=== PATIENT | female | born 1975 | race Caucasian/White ===

== ENCOUNTER 2018-05-15 17:26 | Emergency (ER) | payer BC ==
--- NOTE | 2018-05-15 18:55 | ER Document Report ---
ED Medical Screen (RME) - General Chief Complaint: Near Syncope Stated Complaint: POSSIBLE SYNCOPE Time Seen by Provider: 05/15/18 18:46 Notes: 42-year-old female to the emergency department chief complaint of dizziness, blurred vision, and unsteady gait. Patient was at work today and felt like she was about to pass out. Began seeing spots. Says that her eyes feel like they are moving. No nausea. No chest pain. I have greeted and performed a rapid initial assessment of this patient. A comprehensive ED assessment and evaluation of the patient, analysis of test results and completion of the medical decision making process will be conducted by additional ED providers. TRAVEL OUTSIDE OF THE [place] IN LAST 30 DAYS: No - Related Data Allergies/Adverse Reactions: prochlorperazine [From Compazine] Allergy (Verified 12/13/15 08:58) Past Medical History GI Medical History: Reports: Hx Ulcer Past Surgical History: Reports: Hx Appendectomy, Hx Hysterectomy Physical Exam - Vital signs Vitals: Temp Pulse Resp BP Pulse Ox 98.7 F 90 18 137/92 H 98 05/15/18 17:32 05/15/18 17:32 05/15/18 17:32 05/15/18 17:32 05/15/18 17:32 - Respiratory Respiratory status: No respiratory distress Chest status: Nontender Breath sounds: Normal Chest palpation: Normal - Cardiovascular Rhythm: Regular Heart sounds: Normal auscultation Murmur: No - Neurological Neuro grossly intact: Yes Cognition: Normal Orientation: AAOx4 Kleber Coma Scale Eye Opening: Spontaneous Luckey Coma Scale Verbal: Oriented Luckey Coma Scale Motor: Obeys Commands Luckey Coma Scale Total: 15 Speech: Normal Motor strength normal: LUE, RUE, LLE, RLE Sensory: Normal Course - Vital Signs Vital signs: Temp Pulse Resp BP Pulse Ox 98.7 F 90 18 137/92 H 98 05/15/18 17:32 05/15/18 17:32 05/15/18 17:32 05/15/18 17:32 05/15/18 17:32
--- NOTE | 2018-05-15 19:25 | RADIOLOGY REPORT (SQ) ---
EXAM DESCRIPTION: CHEST 2 VIEWS COMPLETED DATE/TIME: 05/15/2018 7:06 pm REASON FOR STUDY: near syncope COMPARISON: None. EXAM PARAMETERS: NUMBER OF VIEWS: two views TECHNIQUE: Digital Frontal and Lateral radiographic views of the chest acquired. RADIATION DOSE: NA LIMITATIONS: none FINDINGS: LUNGS AND PLEURA: No opacities, masses or pneumothorax. No pleural effusion. MEDIASTINUM AND HILAR STRUCTURES: No masses or contour abnormalities. HEART AND VASCULAR STRUCTURES: Heart normal size. No evidence for failure. BONES: No acute findings. HARDWARE: None in the chest. OTHER: No other significant finding. IMPRESSION: NO ACUTE RADIOGRAPHIC FINDING IN THE CHEST. TECHNICAL DOCUMENTATION: JOB ID: [id number] [employer]- All Rights Reserved Reading location - IP/workstation name: [email or web address]
--- NOTE | 2018-05-15 19:29 | RADIOLOGY REPORT (SQ) ---
EXAM DESCRIPTION: CT HEAD WITHOUT COMPLETED DATE/TIME: 05/15/2018 7:09 pm REASON FOR STUDY: Dizziness, blurred vision, unsteady gait COMPARISON: None. TECHNIQUE: Axial images acquired through the brain without intravenous contrast. Images reviewed wi th bone, brain and subdural windows. Additional sagittal and coronal reconstructions were generated. Images stored on PACS. All CT scanners at this facility use dose modulation, iterative reconstruction, and/or weight based d osing when appropriate to reduce radiation dose to as low as reasonably achievable (ALARA). [facility]: Dose Right [facility]: CareDose [facility]: Dose Right [facility]: Teradose 4D [facility]: [employer] RADIATION DOSE: CT Rad equipment meets quality standard of care and radiation dose reduction techniq ues were employed. CTDIvol: 53.2 mGy. DLP: 991 mGy-cm. mGy. LIMITATIONS: Very mild motion artifact FINDINGS: VENTRICLES: Normal size and contour. CEREBRUM: No masses. No hemorrhage. No midline shift. No evidence for acute infarction. Normal gra y/white matter differentiation. No areas of low density in the white matter. CEREBELLUM: No masses. No hemorrhage. No alteration of density. No evidence for acute infarction. EXTRAAXIAL SPACES: No fluid collections. No masses. ORBITS AND GLOBE: No intra- or extraconal masses. Normal contour of globe without masses. CALVARIUM: No fracture. PARANASAL SINUSES: No fluid or mucosal thickening. SOFT TISSUES: No mass or hematoma. OTHER: No other significant finding. IMPRESSION: NORMAL BRAIN CT WITHOUT CONTRAST. EVIDENCE OF ACUTE STROKE: NO. COMMENT: Quality ID # [id number]: Final reports with documentation of one or more dose reduction techniques (e.g., Automated exposure control, adjustment of the mA and/or kV according to patient size, use of iterative reconstruction technique) TECHNICAL DOCUMENTATION: JOB ID: [id number] [employer]- All Rights Reserved Reading location - IP/workstation name: [email or web address]
[2018-05-15 19:38] LABS: APPEARANCE,URINE CLEAR; BILIRUBIN,URINE NEGATIVE (NEGATIVE); COLOR,URINE YELLOW; GLUCOSE, URINE NEGATIVE (NEGATIVE); KETONES,URINE NEGATIVE (NEGATIVE); LEUKOCYTE ESTERASE,URINE NEGATIVE (NEGATIVE); NITRITE,URINE NEGATIVE (NEGATIVE); PROTEIN,URINE NEGATIVE (NEGATIVE); URINE SPECIFIC GRAVITY 1.009; UROBILINOGEN,URINE NEGATIVE mg/dL (<2.0)
[2018-05-15 19:39] LABS: ABSOLUTE EOSINOPHILS # (AUTO) 0.1 10^3/uL (0.0-0.6); ABSOLUTE LYMPHOCYTES (AUTO) 3.1 10^3/uL (0.5-4.7); ABSOLUTE MONOCYTES (AUTO) 0.7 10^3/uL (0.1-1.4); ABSOLUTE NEUT (AUTO) 9.4 10^3/uL (1.7-8.2); BASOPHILS % (AUTO) 0.2 % (0-2); EOSINOPHILS % (AUTO) 0.5 % (0-6); HEMATOCRIT 41.6 % (36.0-47.0); HEMOGLOBIN 14.5 g/dL (12.0-15.5); LYMPHOCYTES % (AUTO) 23.6 % (13-45); MEAN CORPUSCULAR HEMOGLOBIN 31.7 pg (27.0-33.4); MEAN CORPUSCULAR HGB CONC 34.8 g/dL (32.0-36.0); MEAN CORPUSCULAR VOLUME 91 fl (80-97); MONOCYTES % (AUTO) 5.4 % (3-13); PLATELET COUNT 354 10^3/uL (150-450); RED BLOOD COUNT 4.57 10^6/uL (3.72-5.28); RED CELL DISTRIBUTION WIDTH 12.7 % (11.5-14.0); SEGMENTED NEUTROPHILS % (AUTO) 70.3 % (42-78); TOTAL CELLS COUNTED % (AUTO) 100 %; WHITE BLOOD COUNT 13.3 10^3/uL (4.0-10.5)
[2018-05-15 19:59] LABS: ALANINE AMINOTRANSFERASE 28 U/L (9-52); ALBUMIN 4.7 g/dL (3.5-5.0); ALKALINE PHOSPHATASE 65 U/L (38-126); ANION GAP 10 (5-19); ASPARTATE AMINO TRANSFERASE 18 U/L (14-36); BILIRUBIN,DIRECT 0.1 mg/dL (0.0-0.4); BILIRUBIN,TOTAL 0.5 mg/dL (0.2-1.3); BLOOD UREA NITROGEN 10 mg/dL (7-20); CALCIUM 9.7 mg/dL (8.4-10.2); CARBON DIOXIDE 27 mmol/L (22-30); CHLORIDE 103 mmol/L (98-107); CREATINE KINASE 64 U/L (30-135); GLUCOSE 95 mg/dL (75-110); POTASSIUM 3.6 mmol/L (3.6-5.0); SODIUM 140.2 mmol/L (137-145); TOTAL PROTEIN 7.6 g/dL (6.3-8.2)
[2018-05-15 20:17] LABS: CREATINE KINASE MB 0.35 ng/mL (<4.55)
[2018-05-15 20:22] LABS: TROPONIN I < 0.012 ng/mL
--- NOTE | 2018-05-15 23:04 | ER Document Report ---
ED Dizziness/Weakness - General Chief Complaint: Near Syncope Stated Complaint: POSSIBLE SYNCOPE Time Seen by Provider: 05/15/18 18:46 Mode of Arrival: Ambulatory Information source: Patient Notes: 42-year-old female presents the emergency department with complaints of lightheadedness. Patient states that yesterday and today she has been feeling lightheaded. Patient states that today she was standing up when she began feeling hot and her vision went black. Patient was assisted into a seated position and her symptoms resolved. Patient came to the emergency department for an evaluation. She denies any chest pain, shortness of breath, speech changes, numbness, tingling, weakness. Patient states that she does have a history of hypertension but denies any coronary artery disease, diabetes, hyperlipidemia, smoking, family history of coronary artery disease. TRAVEL OUTSIDE OF THE [place] IN LAST 30 DAYS: No - HPI Patient complains to provider of: Near-syncope Onset: Just prior to arrival Onset/Duration: Sudden Quality of pain: No pain Associated symptoms: None - Related Data Allergies/Adverse Reactions: prochlorperazine [From Compazine] Allergy (Verified 12/13/15 08:58) Past Medical History - General Information source: Patient - Social History Smoking Status: Never Smoker Frequency of alcohol use: Occasional Drug Abuse: None Family History: None Patient has suicidal ideation: No Patient has homicidal ideation: No - Past Medical History Cardiac Medical History: Reports: Hx Hypertension Renal/ Medical History: Denies: Hx Peritoneal Dialysis GI Medical History: Reports: Hx Ulcer Past Surgical History: Reports: Hx Appendectomy, Hx Hysterectomy Review of Systems - Review of Systems Constitutional: No symptoms reported EENT: No symptoms reported Cardiovascular: Lightheaded Respiratory: No symptoms reported Gastrointestinal: No symptoms reported Genitourinary: No symptoms reported Female Genitourinary: No symptoms reported Musculoskeletal: No symptoms reported Skin: No symptoms reported Hematologic/Lymphatic: No symptoms reported Neurological/Psychological: No symptoms reported -: Yes All other systems reviewed and negative Physical Exam - Vital signs Vitals: Temp Pulse Resp BP Pulse Ox 98.7 F 90 18 137/92 H 98 05/15/18 17:32 05/15/18 17:32 05/15/18 17:32 05/15/18 17:32 05/15/18 17:32 - Notes Notes: PHYSICAL EXAMINATION: GENERAL: Well-appearing, well-nourished and in no acute distress. HEAD: Atraumatic, normocephalic. EYES: Pupils equal round and reactive to light, extraocular movements intact, conjunctiva are normal. ENT: Nares patent, oropharynx clear without exudates. Moist mucous membranes. NECK: Normal range of motion, supple without lymphadenopathy LUNGS: Breath sounds clear to auscultation bilaterally and equal. No wheezes rales or rhonchi. HEART: Regular rate and rhythm without murmurs ABDOMEN: Soft, nontender, nondistended abdomen. No guarding, no rebound. No masses appreciated. Female : deferred Musculoskeletal: Normal range of motion, no pitting or edema. No cyanosis. NEUROLOGICAL: Cranial nerves grossly intact. Normal speech, normal gait. Normal sensory, motor exams PSYCH: Normal mood, normal affect. SKIN: Warm, Dry, normal turgor, no rashes or lesions noted. Course - Re-evaluation Re-evalutation: 05/16/18 00:10 EKG: Ventricular rate 80, FL interval 152, QRS duration 90, QTc 466, normal sinus rhythm, no ST segment elevation. 05/16/18 00:11 Labs and imaging obtained. No acute process identified. Orthostatic vitals are within normal limits. I discussed the results with the patient. I told her to follow-up with her primary care physician this week, to continue taking her medication as directed, and to return for any worsening symptoms. Patient is agreeable with plan of care. - Vital Signs Vital signs: Temp Pulse Resp BP Pulse Ox 98.7 F 90 18 137/92 H 98 05/15/18 17:32 05/15/18 17:32 05/15/18 17:32 05/15/18 17:32 05/15/18 17:32 - Laboratory Result Diagrams: 05/15/18 19:20 05/15/18 19:20 Laboratory results interpreted by me: 05/15/18 05/15/18 05/15/18 19:20 19:20 19:20 WBC 13.3 H Absolute Neutrophils 9.4 H Creatinine 0.48 L Urine Blood MODERATE H Discharge - Discharge Clinical Impression: Near syncope Condition: Stable Disposition: HOME, SELF-CARE Instructions: Near Syncopal Episode ([facility]) Referrals: EUGENIE SIMS MD [ACTIVE STAFF] - Follow up as needed SHE SOTO MD [ACTIVE STAFF] - Follow up as needed
[2018-05-16 01:09] VITALS: BP 127/93
--- NOTE | 2018-05-16 22:49 | EKG REPORT ---
SEVERITY:- BORDERLINE ECG - SINUS RHYTHM BORDERLINE INFERIOR Q WAVES : Confirmed by: Lester Baker 16-May-2018 22:48:32
== END 2018-05-16 00:35 | disposition home or self-care (01) ==
LOC: ER 17:26
DX: R55 Syncope and collapse (principal); I10 Essential (primary) hypertension; Z88.8 Allergy status to other drugs, medicaments and biological substances
CPT/HCPCS: 36415; 70450; 71046; 80053; 81001; 81025; 82550; 82553; 84484; 85025; 93005; 93010; 99284

== ENCOUNTER → 2018-09-27 | Outpatient (CLI) | payer BC ==
--- NOTE | 2018-09-28 23:04 | NEURO WORKBENCH EEG REPORT ---
EEG Report Patient: Myah Shah ID: [id number] Referring Doctor: Navi Hayes MD DOS: 09/27/2018 Medications: Lexapro, Metoprolol History This is a 43 year old right handed woman with a history of hypertension, ADHD, history of syncope who had an episode in May where she was standing, her eyes rolled back, she lost consciousness, and has vertigo and passing out with headache over the last month. This EEG was requested for syncope. EEG Interpretation This EEG was recorded in the awake and drowsy states. The awake EEG is characterized by a well-organized background with a well-developed and reactive posterior dominant rhythm of 10Hz. Drowsiness is characterized by slowing of the background rhythms. There was one burst of hypnagogic hypersynchrony but sleep was not obtained. Photic stimulation resulted in an excellent driving response. There were no epileptiform abnormalities. The EKG showed several periods of irregularity with what appeared to be premature contractions. EEG Classification EKG - irregular EEG Impression This EEG is normal in the awake and drowsy states. The EKG showed several periods of an irregular rhythm that should be further investigated. INTERPRETING NEUROLOGIST: Piedad Rowell MD, FRCPC Board Certified in Neurology, with special qualification in Child Neurology, and in Clinical Neurophysiology [facility]
== END ==
LOC: NEURO 12:37
PROVIDERS: ATTEND Pediatrics
DX: R55 Syncope and collapse (principal); R51 Headache
CPT/HCPCS: 95819